=== PATIENT | female | born 1970 | race Caucasian/White ===

== ENCOUNTER 2016-12-20 22:17 | Emergency (ER) | payer MEDICAID ==
[~2016-12-20] VITALS: Ht 147.3 cm; Wt 79.4 kg
[2016-12-20 22:17] VITALS: BP 154/87; PULSE 92; RESP 20; TEMP 98; O2SAT 100
[~2016-12-20 22:17] MED LIST: IBUPROFEN
[2016-12-20 23:40] LABS: BILIRUBIN,URINE NEGATIVE (NEGATIVE); BLOOD, URINE 3+ (NEGATIVE); CLARITY/URINE SL CLOUDY (CLEAR); COLOR,URINE YELLOW (YELLOW); GLUCOSE,URINE NEGATIVE (NEGATIVE); KETONES,URINE NEGATIVE (NEGATIVE); LEUKOCYTE ESTERASE ,URINE 1+ (NEGATIVE); NITRITE, URINE NEGATIVE (NEGATIVE); PROTEIN URINE 2+ (NEGATIVE); UROBILINOGEN,URINE 0.2 (0.2-1.0)
[2016-12-20 23:56] LABS: BACTERIA,URINE MODERATE /HPF (None Seen); MUCUS,URINE None Seen /LPF (None Seen); RBC,URINE 20-50 /HPF (0-3); WBC,URINE >100 /HPF (0-3)
--- NOTE | 2016-12-21 00:57 | NUR ---
Patient to [facility] for evaluation. Side rails up. Report given to Thais MARIO.
--- NOTE | 2016-12-21 00:58 | NUR ---
Patient is in hallway stable with . Patient states that she is having burning urination on and off and frequency x 1 month. Pain 2/10. Denies any other symptoms. No other complaints/injuries per patient or as noted.
--- NOTE | 2016-12-21 01:22 | NUR ---
ER at bedside examining patient.
[2016-12-21 01:42] VITALS: BP 154/87; PULSE 86; RESP 18; TEMP 98; O2SAT 100
--- NOTE | 2016-12-21 01:42 | NUR ---
Patient given written and verbal discharge instructions and verbalizes understanding. ER MD discussed with patient the results and treatment provided. Patient in stable condition. ID arm band removed. Rx of Ciprofloxacin given. Patient educated on pain management and to follow up with PMD 2-3 days. Pain Scale 0/10 Opportunity for questions provided and answered.
== END 2016-12-21 01:42 | disposition home or self-care (01) ==
LOC: SED 22:17
DX: N39.0 Urinary tract infection, site not specified (principal); Z88.1 Allergy status to other antibiotic agents; Z88.0 Allergy status to penicillin; Z86.12 Personal history of poliomyelitis; Z88.6 Allergy status to analgesic agent
CPT/HCPCS: 81000-TC; 81025; 87086; 87186-TC; 99284